=== PATIENT | female | born 1945 | race Asian ===

== ENCOUNTER 2017-06-15 17:49 | Emergency (ER) | payer OTHER ==
[2017-06-15 18:22] VITALS: BMI 22.3
[2017-06-15] MEDS ORDERED: ACETAMINOPHEN 325 MG TABLET (FP) ONE (18:45)
[2017-06-15] MEDS ORDERED: ACETAMINOPHEN 500 MG TABLET (FP) PO ONE (19:16)
[2017-06-15 19:34] LABS: URINE APPEARANCE CLOUDY; URINE BILIRUBIN NEGATIVE (<2.0 mg/dL); URINE BLOOD 1+ (NEGATIVE); URINE COLOR YELLOW; URINE GLUCOSE (UA) 2+ (NEGATIVE); URINE KETONE NEGATIVE (NEGATIVE); URINE NITRITE NEGATIVE (NEGATIVE); URINE UROBILINOGEN NEGATIVE mg/dL (0.2-1.0)
[2017-06-15] MEDS ORDERED: SODIUM CHLORIDE 1,000 ML IV STA ×2 (19:38→21:12)
--- NOTE | 2017-06-15 19:38 | PDOC ---
History of Present Illness - General Chief Complaint: SIRS, Suspected/Possible Stated Complaint: PCP SENT Time Seen by Provider: 06/15/17 19:14 - History of Present Illness Initial Comments: 06/15/17 19:34 71 F with h/o HTN, HLD presenting to ED with 2 days of cough and fever. Pt states that she has dry cough associated with sore throat. Denies CP/SOB. Denies abdominal pain/N/V. Pt went to [facility] yesterday and had bloodwork and CXR. Was called today about her labs and told that she had a high WBC count. Pt come to ED for further evaluation. Pt denies dysuria/flank pain. Denies LEO/N/V. Denies neck pain. Past History - Past Medical History Allergies/Adverse Reactions: Allergies Allergy/AdvReac Type Severity Reaction Status Date / Time No Known Allergies Allergy Verified 06/15/17 18:14 Home Medications: Ambulatory Orders Amlodipine Besylate [Norvasc -] 10 mg PO DAILY 06/15/17 Simvastatin [Zocor -] 20 mg PO HS 06/15/17 levoFLOXacin [Levaquin -] 750 mg PO DAILY #21 tablet 06/15/17 COPD: No HTN: Yes Hypercholesterolemia: Yes - Surgical History Appendectomy: Yes - Suicide/Smoking/Psychosocial Hx Smoking History: Never smoked Have you smoked in the past 12 months: No Information on smoking cessation initiated: No Hx Alcohol Use: No Drug/Substance Use Hx: No Review of Systems - Review of Systems Comments:: 06/15/17 19:36 "GENERAL/CONSTITUTIONAL: + fever no chills. No weakness. HEAD, EYES, EARS, NOSE AND THROAT: No change in vision. No ear pain or discharge. + sore throat. CARDIOVASCULAR: No chest pain or shortness of breath. RESPIRATORY: + cough, no wheezing, or hemoptysis. GASTROINTESTINAL: No nausea, vomiting, diarrhea or constipation. GENITOURINARY: No dysuria, frequency, or change in urination. MUSCULOSKELETAL: No joint or muscle swelling or pain. No neck or back pain. SKIN: No rash NEUROLOGIC: No headache, vertigo, loss of consciousness, or change in strength/ sensation. ENDOCRINE: No increased thirst. No abnormal weight change. HEMATOLOGIC/LYMPHATIC: No anemia, easy bleeding, or history of blood clots. ALLERGIC/IMMUNOLOGIC: No hives or skin allergy. " *Physical Exam - Vital Signs Last Vital Signs Temp Pulse Resp BP Pulse Ox 101.4 F H 124 H 20 149/78 96 06/15/17 18:14 06/15/17 18:14 06/15/17 18:14 06/15/17 18:14 06/15/17 18:14 - Physical Exam Comments: 06/15/17 19:37 "GENERAL: Awake, alert, and fully oriented, in no acute distress HEAD: No signs of trauma EYES: PERRLA, EOMI, sclera anicteric, conjunctiva clear ENT: Auricles normal inspection, hearing grossly normal, nares patent, oropharynx clear without exudates. Moist mucosa NECK: Nontender, no stepoffs, Normal ROM, supple, no lymphadenopathy, JVD, or masses LUNGS: Breath sounds equal, clear to auscultation bilaterally. No wheezes, and no crackles HEART: Regular rate and rhythm, normal S1 and S2, no murmurs, rubs or gallops ABDOMEN: Soft, nontender, normoactive bowel sounds. No guarding, no rebound. No masses EXTREMITIES: Normal range of motion, no edema. No clubbing or cyanosis. No cords, erythema, or tenderness NEUROLOGICAL: Cranial nerves II through XII intact. 5/5 strength and sensation in all extremities, Normal speech, normal gait, normal cerebellar function SKIN: Warm, Dry, normal turgor, no rashes or lesions noted. " ED Treatment Course - LABORATORY CBC & Chemistry Diagram: 06/15/17 19:28 06/15/17 20:15 - RADIOLOGY Radiology Studies Ordered: Category Date Time Status CHEST X-RAY PORTABLE* [RAD] Stat Radiology 06/15/17 19:14 Ordered Medical Decision Making - Medical Decision Making 06/15/17 19:37 71 F with fever and cough. Found to be febrile and tachycardic in ED. Pt with clear lungs, benign abdomen. Source likely viral URI vs PNA vs UTI. - Labs, cultures - CXR - flu swab - IVF, tylenol 06/15/17 22:54 Labs notable for UTI. CXR clear. Labs otherwise unremarkable. Ceftriaxone administered. Pt reassessed - states she feels well and would like to go home. I offered pt admission for IV abx given significant tachycardia and fever upon arrival. However, pt refusing at this time, stating that she does not feel like she needs to be admitted. Will recheck vitals at this time 06/15/17 23:04 Vitals rechecked, now wnl. Pt is well appearing, with normal vitals. Clinically stable for DC at this time. I discussed the physical exam findings, ancillary test results and final diagnoses with the patient. I answered all of the patient's questions. The patient was satisfied with the care received and felt comfortable with the discharge plan and treatment plan. The patient agrees to follow up with the primary care physician within 24-72 hours. *DC/Admit/Observation/Transfer Diagnosis at time of Disposition: UTI (urinary tract infection) - Discharge Dispostion Disposition: HOME - Prescriptions Prescriptions: levoFLOXacin [Levaquin -] 750 mg PO DAILY #21 tablet - Referrals Referrals: Maikol Block MD [Primary Care Provider] - - Patient Instructions Printed Discharge Instructions: DI for Fever (Symptom) -- Adult, DI for Urinary Tract Infection (UTI) Additional Instructions: You have a urinary tract infection. Take the antibiotics as prescribed to treat it. Take tylenol or motrin as needed for fever and pain. If you experience high or persistent fevers, headache, vomiting, abdominal pain , lethargy, weakness, or any other concerning symptoms, return to the ER immediately. Otherwise, follow up with your primary care doctor within 1 week. - Post Discharge Activity - Attestations Physician Attestion: 06/15/17 23:06 I, Dr. Delonte Finney MD, attest that this document has been prepared under my direction and personally reviewed by me in its entirety. I further attest, that it accurately reflects all work, treatment, procedures and medical decision -making performed by me.
[2017-06-15 19:41] LABS: URINE LEUK ESTERASE 1+ (NEGATIVE); URINE PROTEIN 2+ (NEGATIVE)
[2017-06-15 19:42] LABS: BASO % 0.2 % (0-2.0); EOS % 0.1 % (0-4.5); EPI CELLS RARE /HPF (FEW); HEMATOCRIT 39.9 % (32.4-45.2); HEMOGLOBIN 13.4 GM/dL (10.7-15.3); LYMPH % 11.6 % (8-40); MCH 30.3 pg (25.7-33.7); MCHC 33.6 g/dl (32.0-36.0); MEAN CELL VOLUME 90.1 fl (80-96); MEAN PLT VOLUME 8.1 fl (7.5-11.1); MONO % 10.6 % (3.8-10.2); NEUT % 77.5 % (42.8-82.8); PLATELET COUNT 204 K/MM3 (134-434); RBC 4.43 M/mm3 (3.60-5.2); RDW 13.3 % (11.6-15.6); WHITE BLOOD COUNT 10.4 K/mm3 (4.0-10.0)
[2017-06-15 20:06] LABS: INR 1.01 (0.82-1.09); PROTHROMBIN TIME (PATIENT) 11.4 SEC (9.98-11.88)
[2017-06-15 20:08] LABS: ACTIVATED PTT 35.2 SECONDS (26.9-34.4)
[2017-06-15 20:42] LABS: ALBUMIN 3.4 g/dl (3.4-5.0); ALK PHOS 85 U/L (45-117); ANION GAP 8 (8-16); BILIRUBIN,TOTAL 0.3 mg/dL (0.2-1.0); BLOOD UREA NITROGEN 13 mg/dL (7-18); CALCIUM 8.2 mg/dL (8.5-10.1); CHLORIDE 104 mmol/L (98-107); CO2 25 mmol/L (21-32); CREATININE 0.6 mg/dL (0.55-1.02); GLUCOSE,RANDOM 120 mg/dL (74-106); POTASSIUM 3.8 mmol/L (3.5-5.1); SGOT/AST 25 U/L (15-37); SGPT/ALT 31 U/L (12-78); SODIUM 137 mmol/L (136-145); TOT PROT 6.9 g/dl (6.4-8.2)
[2017-06-15] MEDS ORDERED: CEFTRIAXONE 1 GM in DEXTROSE 5%-WATER - 50 ML IVPB ONE (21:12)
[2017-06-15] MEDS ORDERED: CEFTRIAXONE 1 GM/50 ML BAG ONE (21:25)
[2017-06-15 22:04] LABS: VENOUS PH 7.43 (7.32-7.42)
[2017-06-15 23:05] VITALS: BP 126/70; PULSE 92; TEMP 98.2
--- NOTE | 2017-06-16 14:50 | EKG ---
Test Reason : Blood Pressure : / mmHG Vent. Rate : 121 BPM Atrial Rate : 121 BPM P-R Int : 170 ms QRS Dur : 076 ms QT Int : 298 ms P-R-T Axes : 075 057 069 degrees QTc Int : 423 ms POOR DATA QUALITY, INTERPRETATION MAY BE ADVERSELY AFFECTED SINUS TACHYCARDIA OTHERWISE NORMAL ECG WHEN COMPARED WITH ECG OF 22-OCT-2004 10:03, VENT. RATE HAS INCREASED BY 60 BPM Confirmed by CONCEPCION RAMIREZ MD ([id number]) on 06/16/2017 2:50:06 PM Referred By: Confirmed By:CONCEPCION RAMIREZ MD
== END 2017-06-15 23:18 | disposition home or self-care (01) ==
LOC: JER 17:49
PROC: 3E0337Z Introduction of Electrolytic and Water Balance Substance into Peripheral Vein, Percutaneous Approach (ICD-10-PCS; principal; 2017-06-15)
PROC: 3E03329 Introduction of Other Anti-infective into Peripheral Vein, Percutaneous Approach (ICD-10-PCS; 2017-06-15)
DX: N39.0 Urinary tract infection, site not specified (principal)
CPT/HCPCS: 36415; 71045-TC-FY; 80053; 81003; 81015; 82550; 82803; 83605; 84484; 85025; 85027; 85610; 85730; 87040; 87086; 87804; 93005; 93010; 96361; 96365; 99285-25; J7030

== ENCOUNTER 2020-03-26 12:15 | Inpatient (IN) | payer OTHER, BC, MEDICARE ==
[2020-03-26 12:23] VITALS: BMI 21.1
[2020-03-26 14:05] LABS: BASO % 0.5 % (0-2.0); EOS % 0.6 % (0-4.5); HEMATOCRIT 43.6 % (32.4-45.2); HEMOGLOBIN 14.8 GM/dL (10.7-15.3); LYMPH % 16.6 % (8-40); MCH 31.7 pg (25.7-33.7); MCHC 33.9 g/dl (32.0-36.0); MEAN CELL VOLUME 93.4 fl (80-96); MEAN PLT VOLUME 7.8 fl (7.5-11.1); MONO % 7.9 % (3.8-10.2); NEUT % 74.4 % (42.8-82.8); PLATELET COUNT 176 K/MM3 (134-434); RBC 4.66 M/mm3 (3.60-5.2); RDW 12.8 % (11.6-15.6); WHITE BLOOD COUNT 9.3 K/mm3 (4.0-10.0)
[2020-03-26 14:10] LABS: INR 0.95 (0.83-1.09); PROTHROMBIN TIME (PATIENT) 11.5 SEC (9.7-13.0)
[2020-03-26 14:13] LABS: ACTIVATED PTT 33.9 SECONDS (25.2-36.5)
[2020-03-26 14:28] LABS: CHLORIDE 106 mmol/L (98-107); SODIUM 140 mmol/L (136-145)
[2020-03-26] MEDS ORDERED: ACETAMINOPHEN 1000 MG/100 ML BAG IVPB ONE (14:29)
[2020-03-26 14:30] LABS: CALCIUM 8.8 mg/dL (8.5-10.1)
[2020-03-26] MEDS ORDERED: ACETAMINOPHEN INJECTION 100 ML IVPB ONE (14:30)
[2020-03-26 14:31] LABS: ALBUMIN 4.4 g/dl (3.4-5.0); ANION GAP 7 MMOL/L (8-16); BLOOD UREA NITROGEN 14.7 mg/dL (7-18); CO2 27 mmol/L (21-32); GLUCOSE,RANDOM 91 mg/dL (74-106)
[2020-03-26 14:34] LABS: CREATININE 0.7 mg/dL (0.55-1.3); SGOT/AST 34 U/L (15-37); SGPT/ALT 44 U/L (13-61)
[2020-03-26 14:35] LABS: BILIRUBIN,TOTAL 0.6 mg/dL (0.2-1)
[2020-03-26 14:36] LABS: TOT PROT 8.7 g/dl (6.4-8.2)
[2020-03-26 14:37] LABS: ALK PHOS 119 U/L (45-117)
[2020-03-26 14:39] LABS: N-TERMINAL BNP 28.8 pg/ml (5-450)
[2020-03-26] MEDS ORDERED: ONDANSETRON 4 MG/2 ML VIAL IVPUSH ONE (14:56)
[2020-03-26] MEDS ORDERED: FAMOTIDINE 20 MG/50 ML IVPB 20 MG/50 ML MG IVPB ONE ×2 (14:56→15:03)
[2020-03-26] MEDS ORDERED: MAG HYDROX/AL HYDROX/SIMETH 30 ML UNIT-DOSE CUP PO ONE (14:56)
[2020-03-26] MEDS ORDERED: LACTATED RINGERS SOLUTION 1000 ML INFUS.BAG IV ONE (14:57)
[2020-03-26] MEDS ORDERED: ONDANSETRON 4 MG/2 ML VIAL ONE (15:03)
[2020-03-26] MEDS ORDERED: MAG HYDROX/AL HYDROX/SIMETH 30 ML UNIT-DOSE CUP ONE (15:03)
[2020-03-26 17:16] LABS: LIPASE 135 U/L (73-393)
[2020-03-26] MEDS ORDERED: amLODIPine BESYLATE 10 MG TABLET (FP) PO ONE (19:16)
[2020-03-26] MEDS ORDERED: METOPROLOL TARTRATE 25 MG TABLET (FP) PO ONE (19:24)
[2020-03-26 20:19] VITALS: TEMP 98.4
[2020-03-26] MEDS ORDERED: amLODIPine BESYLATE 5 MG TABLET (FP) ONE (21:45)
[2020-03-26] MEDS ORDERED: METOPROLOL TARTRATE 25 MG TABLET (FP) ONE (21:45)
[2020-03-26 23:56] VITALS: BP 120/67; PULSE 72
== END 2020-03-27 01:12 | disposition short-term general hospital (02) | DRG 313 ==
LOC: JER 12:15 → JERBED 18:40
PROVIDERS: ADMIT Internal Medicine; ATTEND Internal Medicine
DX: R07.89 Other chest pain (principal); I10 Essential (primary) hypertension; E78.5 Hyperlipidemia, unspecified; E78.00 Pure hypercholesterolemia, unspecified; E11.9 Type 2 diabetes mellitus without complications; I71.4 Abdominal aortic aneurysm, without rupture
CPT/HCPCS: 36415; 71045-TC-FY; 71275-TC; 74174-TC; 80053; 82550; 83690; 83880; 84484; 85025; 85379; 85610; 85730; 93005; 93010; 99285-25; C9803; J0131; Q9967; U0003

== ENCOUNTER 2021-07-02 11:13 | Observation (INO) | payer OTHER, BC ==
[2021-07-02 11:46] VITALS: TEMP 97.7; BMI 21.7
[2021-07-02] MEDS ORDERED: SODIUM CHLORIDE 0.9% 500 ML INFUS.BAG IV ONE (12:50)
[2021-07-02] MEDS ORDERED: MAG HYDROX/AL HYDROX/SIMETH -MYLANTA- ORAL SUSPENSION PO ONE (12:50)
[2021-07-02] MEDS ORDERED: ACETAMINOPHEN 1000 MG/100 ML BAG IVPB ONE (12:50)
[2021-07-02] MEDS ORDERED: FAMOTIDINE 20 MG/50 ML IVPB 20 MG/50 ML MG IVPB ONE (12:50)
[2021-07-02] MEDS ORDERED: ACETAMINOPHEN INJECTION 100 ML IVPB ONE (13:09)
[2021-07-02] MEDS ORDERED: MAG HYDROX/AL HYDROX/SIMETH 30 ML UNIT-DOSE CUP ONE (13:09)
[2021-07-02 14:03] LABS: BASO % 0.4 % (0-2.0); HEMATOCRIT 42.1 % (32.4-45.2); MCH 30.2 pg (25.7-33.7); MCHC 33.2 g/dl (32.0-36.0); MEAN PLT VOLUME 8.3 fl (7.5-11.1); MONO % 7.6 % (3.8-10.2); RBC 4.63 M/mm3 (3.60-5.2); RDW 13.2 % (11.6-15.6); WHITE BLOOD COUNT 6.5 K/mm3 (4.0-10.0)
[2021-07-02 14:07] LABS: PLATELET COUNT 140 10^3/uL (134-434)
[2021-07-02 14:09] LABS: INR 0.96 (0.83-1.09)
[2021-07-02 14:12] LABS: ACTIVATED PTT 23.7 SECONDS (25.2-36.5)
[2021-07-02 14:29] LABS: CHLORIDE 105 mmol/L (98-107); SODIUM 137 mmol/L (136-145)
[2021-07-02 14:31] LABS: CALCIUM 9.2 mg/dL (8.5-10.1)
[2021-07-02 14:32] LABS: ALBUMIN 4.2 g/dl (3.4-5.0); CO2 27 mmol/L (21-32); GLUCOSE,RANDOM 92 mg/dL (74-106); LIPASE 98 U/L (73-393); MAGNESIUM 2.3 mg/dL (1.8-2.4)
[2021-07-02 14:34] LABS: SGOT/AST 94 U/L (15-37)
[2021-07-02 14:36] LABS: BILIRUBIN,TOTAL 0.6 mg/dL (0.2-1); TOT PROT 9.1 g/dl (6.4-8.2)
[2021-07-02 14:37] LABS: ALK PHOS 54 U/L (45-117)
[2021-07-02 14:39] LABS: ANION GAP 6 MMOL/L (8-16); CREATININE 0.8 mg/dL (0.55-1.3); SGPT/ALT 53 U/L (13-61)
[2021-07-02] MEDS ORDERED: ASPIRIN 81 MG CHEWABLE TABLETS PO ONE (17:35)
[2021-07-02] MEDS ORDERED: ASPIRIN 81 MG CHEWABLE TABLETS ONE (18:13)
[2021-07-03 00:39] VITALS: BP 124/72; PULSE 70
== END 2021-07-03 01:39 | disposition home or self-care (01) ==
LOC: JER 11:13 → INTOOBSV 17:47 → JERBED 17:47
PROVIDERS: ADMIT Internal Medicine; ATTEND Internal Medicine
PROC: 3E033GC Introduction of Other Therapeutic Substance into Peripheral Vein, Percutaneous Approach (ICD-10-PCS; principal; 2021-07-02)
PROC: 3E0337Z Introduction of Electrolytic and Water Balance Substance into Peripheral Vein, Percutaneous Approach (ICD-10-PCS; 2021-07-02)
PROC: 3E033NZ Introduction of Analgesics, Hypnotics, Sedatives into Peripheral Vein, Percutaneous Approach (ICD-10-PCS; 2021-07-02)
DX: R10.13 Epigastric pain (principal); I10 Essential (primary) hypertension; E78.5 Hyperlipidemia, unspecified
CPT/HCPCS: 36415; 71046-TC-FY; 71275-TC; 74174-TC; 80053; 83690; 83735; 84132; 84484; 85025; 85610; 85730; 93005; 93010; 96365; 96375; 99285-25; C9803-CS; G0378; Q9967; U0003; U0005